=== PATIENT | female | born 1960 | race Hispanic/Latino ===

== ENCOUNTER 2019-08-23 07:26 | Day surgery (SDC) | payer OTHER ==
[2019-08-20 12:33] VITALS: BP 122/83
[2019-08-20 13:27] LABS: POTASSIUM 3.8 mmol/L (3.5-5.1)
[~2019-08-23] VITALS: Ht 157.5 cm; Wt 68.8 kg
[2019-08-23] VITALS (15 sets, daily range): BP systolic 108–152; BP diastolic 70–93
[~2019-08-23 07:26] MED LIST: LISI1TAB28 PO
[2019-08-23] MEDS ORDERED: DEXAMETHASONE SOD PHOSPHATE 10MG/ML 1ML VIAL ONE (08:18)
[2019-08-23] MEDS ORDERED: ONDANSETRON HCL 4 MG/2 ML VIAL ONE (08:18)
[2019-08-23] MEDS ORDERED: MIDAZOLAM HCL 1 MG/ML 2ML VIAL ONE (08:18)
[2019-08-23] MEDS ORDERED: PROPOFOL 10 MG/ML 20ML VIAL IV ONE (08:18)
[2019-08-23] MEDS ORDERED: ROCURONIUM 10MG/1ML SYR 10 MG/ML ML ONE (08:18)
[2019-08-23] MEDS ORDERED: LIDOCAINE PF 2% 5ML ABBOJECT ONE (08:18)
[2019-08-23] MEDS ORDERED: FENTANYL CITRATE PF 50 MCG/1 ML 2ML VIAL ONE (08:19)
[2019-08-23] MEDS ORDERED: BUPIVACAINE/PF 0.5% 30ML VIAL ONE (08:25)
[2019-08-23] MEDS ORDERED: GLYCOPYRROLATE 1 MG/5 ML SYRINGE ONE (08:35)
[2019-08-23] MEDS ORDERED: NEOSTIGMINE 5MG/5ML SYR IV ONE (08:35)
[2019-08-23] MEDS ORDERED: CEFAZOLIN SODIUM 1 GM VIAL ONE (08:38)
[2019-08-23] MEDS ORDERED: SUGAMMADEX SODIUM 200 MG/2 ML VIAL IV ONE (08:56)
[2019-08-23] MEDS ORDERED: MEPERIDINE-PF 25 MG/ML SYG ONE ×2 (09:04→09:49)
[2019-08-23] MEDS ORDERED: KETOROLAC TROMETHAMINE 30MG/ML ONE (09:57)
--- NOTE | 2019-08-23 10:44 | NUR ---
DISCHARGE INSTRUCTIONS AND FOLLOW UP APPOINTMENT PROVIDED TO PATIENT AND PATIENT'S SISTER, QUESTIONS ANSWERED. BOTH VERBALIZED UNDERSTANDING.
--- NOTE | 2019-08-23 11:15 | NUR ---
PATIENT DISCHARGED FROM FACILITY VIA WHEELCHAIR AND ASSISTED INTO PRIVATE VEHICLE DRIVEN BY PATIENT'S SISTER
== END 2019-08-23 11:15 | disposition home or self-care (01) ==
LOC: DAH 07:26
PROVIDERS: ATTEND Surgery
DX: K80.10 Calculus of gallbladder with chronic cholecystitis without obstruction (principal); I10 Essential (primary) hypertension; F17.210 Nicotine dependence, cigarettes, uncomplicated; Z79.899 Other long term (current) drug therapy; Z72.89 Other problems related to lifestyle; Z98.890 Other specified postprocedural states; Z82.49 Family history of ischemic heart disease and other diseases of the circulatory system; Z83.3 Family history of diabetes mellitus; Z82.5 Family history of asthma and other chronic lower respiratory diseases
CPT/HCPCS: 36415; 47562; 80048; 88307; A4215; A4221; A4222; A4223; A4450; A4649 ×2; A4663; A6260; C1769 ×3; J0690; J1100; J1885; J2001; J2175 ×2; J2250; J2405; J2704; J3010; J3490; J7030; J2710